=== PATIENT | female | born 1935 | race Two or more races ===

== ENCOUNTER 2019-11-22 06:30 | Day surgery (SDC) | payer OTHER | END 2019-11-22 12:05 | disposition home or self-care (01) | LOC: AMB-ENDOS 06:30 | PROVIDERS: ATTEND Colon & Rectal Surgery | DX: D12.0 Benign neoplasm of cecum (principal); K64.1 Second degree hemorrhoids; Z20.828 Contact with and (suspected) exposure to other viral communicable diseases ==